=== PATIENT | male | born 1990 | race Caucasian/White ===

== ENCOUNTER 2020-10-26 14:10 | Emergency (ER) | payer MEDICAID, OTHER ==
[~2020-10-26] VITALS: Ht 190.5 cm; Wt 72.6 kg
[~2020-10-26 14:10] MED LIST: SUBOXONE PO
--- NOTE | 2020-10-26 14:25 | NUR ---
Dr Kramer at the bedside for MSE.
[2020-10-26] MEDS ORDERED: ALPRAZOLAM 0.25 MG TABLET PO ONE (14:30)
[2020-10-26] MEDS ORDERED: ALPRAZOLAM 0.5 MG TABLET ONE (14:38)
--- NOTE | 2020-10-26 14:50 | NUR ---
Provided food and fluids, pt states he is not homeless and wishes to be discharged.
--- NOTE | 2020-10-26 15:11 | NUR ---
Pt is relax and less jittery. Pt states medication you gave me worked.
[2020-10-26 15:13] VITALS: BP 113/60
--- NOTE | 2020-10-26 15:14 | NUR ---
Patient discharged to home in stable condition. Written and verbal after care instructions given. Patient verbalizes understanding of instructions. Stressed follow up or return to ER for worsening s/s.
== END 2020-10-26 15:14 | disposition home or self-care (01) ==
LOC: ER 14:10
DX: F15.10 Other stimulant abuse, uncomplicated (principal); F11.10 Opioid abuse, uncomplicated; F41.9 Anxiety disorder, unspecified; F32.9 Major depressive disorder, single episode, unspecified
CPT/HCPCS: A4663